=== PATIENT | male | born 1965 | race Caucasian/White ===

== ENCOUNTER 2016-10-26 21:42 | Emergency (ER) | payer OTHER ==
[2016-10-27] MEDS ORDERED: Ibuprofen TAB* 600 MG PO ONE (00:14)
--- NOTE | 2016-10-27 00:30 | ED ---
Upper Extremity Pain - HPI Summary HPI Summary: 51 male presents with complaints of right wrist pain that began falling and landing on it while playing basketball just prior to arrival. Patient states his hand was under his chest and fell palm down, with wrist bending backwards, per patient. Admits to some swelling, has been icing. Has not taken any pain medication. Denies hitting head, LOC and any other injury. Has ROM with mild pain and stiffness. Denies numbness/tingling. No PMHx. Pain is 3/10 only with movement. - History of Current Complaint Chief Complaint: EDExtremityUpper Stated Complaint: RT WRIST INJURY Time Seen by Provider: 10/26/16 22:50 Hx Obtained From: Patient Mechanism Of Injury: Fall From A Standing Position, Twisted Onset/Duration: Started Hours Ago, Traumatic, Still Present Timing: Constant Severity Initially: Mild Severity Currently: Mild Pain Location: Wrist - right Character: Aching Aggravating Factor(s): Movement, Internal/External Rotation, Abduction, Adduction Alleviating Factor(s): Rest, Ice Associated Signs & Symptoms: Positive: Swelling Related History: Dominant Hand Right - Allergies/Home Medications Allergies/Adverse Reactions: Allergies Allergy/AdvReac Type Severity Reaction Status Date / Time No Known Allergies Allergy Verified 10/26/16 21:59 PMH/Surg Hx/FS Hx/Imm Hx Endocrine/Hematology History: Denies: Hx Diabetes Cardiovascular History: Denies: Hx Hypertension Respiratory History: Denies: Hx Asthma Musculoskeletal History: Denies: Hx Rheumatoid Arthritis, Hx Osteoporosis - Surgical History Surgery Procedure, Year, and Place: none - Immunization History Immunizations Up to Date: Yes Infectious Disease History: No Infectious Disease History: Denies: Traveled Outside the [place] in Last 30 Days - Family History Known Family History: Positive: None - Social History Alcohol Use: Weekly Substance Use Type: Reports: None Smoking Status (MU): Never Smoked Tobacco Review of Systems Constitutional: Negative Cardiovascular: Negative Positive: Shortness Of Breath Positive: Arthralgia, Myalgia, Edema - right wrist Skin: Negative Neurological: Negative All Other Systems Reviewed And Are Negative: Yes Physical Exam Triage Information Reviewed: Yes Vital Signs On Initial Exam: Initial Vitals Temp Pulse Resp BP Pulse Ox 97.8 F 82 16 124/77 97 10/26/16 21:55 10/26/16 21:55 10/26/16 21:55 10/26/16 21:55 10/26/16 21:55 Vital Signs Reviewed: Yes Appearance: Positive: Well-Appearing, No Pain Distress, Well-Nourished Skin: Positive: Warm, Skin Color Reflects Adequate Perfusion, Dry, Other - no obvious deformity, crepitus or step off noted. minimal ecchymosis and edema. Negative: Cold, Numb, Cyanosis @, Erythema @ Head/Face: Positive: Normal Head/Face Inspection Eyes: Positive: Normal, Conjunctiva Clear ENT: Positive: Hearing grossly normal Neck: Positive: Supple, Nontender Respiratory/Lung Sounds: Positive: Clear to Auscultation, Breath Sounds Present. Negative: Rales, Wheezes Cardiovascular: Positive: Normal, RRR, Pulses are Symmetrical in both Upper and Lower Extremities - 2+ radial b/l. Negative: Murmur, Rub Musculoskeletal: Positive: Strength/ROM Intact - FROM of right wrist with some pain/stiffness but able, better with passive. Hand/fingers ROM normal and without pain, Pain @ - on palpation, very mild at snuff box as well as medial wrist. Negative: Limited @, Interruption @, Edema Left, Edema Right Neurological: Positive: Normal, Sensory/Motor Intact - sensation intact, Alert, Oriented to Person Place, Time, CN Intact II-III, Reflexes Intact, NV Bundle Intact Distally Psychiatric: Positive: Affect/Mood Appropriate AVPU Assessment: Alert Diagnostics - Vital Signs Vital Signs Temp Pulse Resp BP Pulse Ox 10/26/16 23:00 98.7 F 68 17 124/77 98 10/26/16 21:55 97.8 F 82 16 124/77 97 - Laboratory Lab Statement: Any lab studies that have been ordered have been reviewed, and results considered in the medical decision making process. - Radiology wrist Xray Interpretation: No Acute Changes - negative examination at this time, repeat imaging if symptoms persist Radiology Interpretation Completed By: ED Physician - Dr Nunez forearm Xray Interpretation: No Acute Changes - negative examination at this time, repeat imaging if symptoms persist Radiology Interpretation Completed By: ED Physician - Dr Nunez Course/Dx - Course Course Of Treatment: given ibuprofen for pain and inflammation. Ice. X-rays of right forearm and wrist obtained and negative at this time. Given thumb spica, continue RICE and NSAIDs. Follow up and have repeat imaging to rule out hairline in the next couple of days. Aware of worsening signs and symptoms to watch out for. - Diagnoses Differential Diagnosis/HQI/PQRI: Positive: Contusion, Fracture (Closed), Strain , Sprain Provider Diagnoses: Sprain of wrist, right Discharge - Discharge Plan Condition: Stable Disposition: HOME Patient Education Materials: Wrist Sprain (ED) Referrals: [facility] [Outside] No Primary Care Phys,NOPCP [Primary Care Provider] - Linda Asher MD [Medical Doctor] - Additional Instructions: Continue icing, resting, elevation and using brace for the next week. Continue taking ibuprofen or naproxen for pain and inflammation, with food, for the next 3-5 days. Sprains are sometimes worse than breaks and take longer to heal, refrain from physical activity until symptoms have completely resolved and take it easy. If symptoms persist or do not improve within the next week please seek medical attention. Recommend repeat imaging in the next 3 days. Follow up with PCP.
[2016-10-27 01:33] VITALS: BP 119/68
--- NOTE | 2016-10-27 07:58 | RAD ---
HISTORY: Right wrist pain COMPARISONS: None VIEWS: 3, Frontal, lateral, and oblique views of the right wrist FINDINGS: BONE DENSITY: Normal. BONES: There is no displaced fracture. 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 ALIGNMENT: There is no dislocation. SOFT TISSUES: Unremarkable. OTHER FINDINGS: None. IMPRESSION: NO ACUTE OSSEOUS INJURY. IF SYMPTOMS PERSIST, RECOMMEND REPEAT IMAGING.
--- NOTE | 2016-10-27 07:59 | RAD ---
HISTORY: Right forearm pain, trauma COMPARISONS: None VIEWS: 2, Frontal and lateral views of the right forearm FINDINGS: BONE DENSITY: Normal. BONES: There is no displaced fracture. JOINTS: There is no arthropathy. ALIGNMENT: There is no dislocation. SOFT TISSUES: Unremarkable. OTHER FINDINGS: None. IMPRESSION: NO ACUTE OSSEOUS INJURY. IF SYMPTOMS PERSIST, RECOMMEND REPEAT IMAGING.
== END 2016-10-27 01:05 | disposition home or self-care (01) ==
LOC: ED 21:42
DX: S63.501A Unspecified sprain of right wrist, initial encounter (principal); M25.531 Pain in right wrist; R06.02 Shortness of breath; W19.XXXA Unspecified fall, initial encounter; Y93.67 Activity, basketball; Y92.89 Other specified places as the place of occurrence of the external cause
CPT/HCPCS: 99281; A9270-GY

== ENCOUNTER 2019-02-19 17:26 | Emergency (ER) | payer OTHER ==
--- NOTE | 2019-02-19 17:34 | UC ---
Skin Complaint HPI - HPI Summary HPI Summary: 53 yo male presents with tick bite. He tells me that today he removed a tick from his right flank. Thinks he acquired it 2 days ago when he was with a dog in [place]. Tick with him today appears slightly engorged, but does not appear consistent with a deer tick. He has no symptoms at this time - History of Current Complaint Time Seen by Provider: 02/19/19 17:33 Stated Complaint: TICK BITE Hx Obtained From: Patient Onset/Duration: Sudden Onset Current Severity: None - Allergy/Home Medications Allergies/Adverse Reactions: Allergies Allergy/AdvReac Type Severity Reaction Status Date / Time No Known Allergies Allergy Verified 01/08/17 11:15 Home Medications: Home Medications NK [No Home Medications Reported] 02/19/19 [History Confirmed 02/19/19] PMH/Surg Hx/FS Hx/Imm Hx - Additional Past Medical History Additional PMH: None - Surgical History Surgical History: Yes Surgery Procedure, Year, and Place: RIGHT SHOULDER [place]PA[place] [facility] [place] [facility] [place] - Family History Known Family History: Positive: None - Social History Lives: With Family Alcohol Use: Weekly Substance Use Type: None Smoking Status (MU): Never Smoked Tobacco Review of Systems All Other Systems Reviewed And Are Negative: No Constitutional: Positive: Negative Skin: Positive: Other - Tick bite Respiratory: Positive: Negative Cardiovascular: Positive: Negative Neurological: Positive: Negative Psychological: Positive: Negative Physical Exam - Summary Physical Exam Summary: GENERAL: NAD. WDWN. No pain distress. SKIN: Right flank: there is a 7mm diameter of mild erythema and edema with central 1mm area of superficial skin loss. No streaking, bleeding, or drainage. NECK: Supple. Nontender. No lymphadenopathy. CHEST: No accessory muscle use. Breathing comfortably and in no distress. CV: Pulses intact. Cap refill <2seconds NEURO: Alert. PSYCH: Age appropriate behavior. Triage Information Reviewed: Yes Vital Signs: Vital Signs: Temp Pulse Resp BP Pulse Ox 98 F 71 16 127/77 100 02/19/19 17:33 02/19/19 17:33 02/19/19 17:33 02/19/19 17:33 02/19/19 17:33 Vital Signs Reviewed: Yes Course/Dx - Course Course Of Treatment: Tick appears to be slightly engorged. Pt was given doxycycline 200mg in the clinic for prophylactic lyme. Advised to monitor for signs/symptoms of lyme and be rechecked if develops - Diagnoses Provider Diagnosis: Tick bite Discharge ED - Sign-Out/Discharge Documenting (check all that apply): Patient Departure All imaging exams completed and their final reports reviewed: No Studies - Discharge Plan Condition: Stable Disposition: HOME Patient Education Materials: Lyme Disease (ED), Tick Bite (ED) Referrals: No Primary Care Phys,NOPCP [Primary Care Provider] - Additional Instructions: TICK BITE: You have been bitten by a tick. Once the tick is removed, these "bites" usually cause no problems. Tick fever, tick paralysis, [place] Spotted fever, and Lyme disease are uncommon -- but you should mention this tick bite to your doctor if you develop unusual symptoms in the next several weeks. If you develop any of the following, please see your physician promptly: (1) Fever, chills, or generalized malaise associated with a headache. (2) A red round area at the site of the bite (or elsewhere) (3) Joint pain, joint swelling or generalized weakness. (4) Redness, swelling, or drainage at the site of the bite. Ticks do not have a typical "head" attached to their body. There are mouth parts sticking out which they use to feed. If there are mouth parts left behind in the wound there is NO increased risk of Lyme infection or disease transmission. If mouth parts remain after tick removal, the best thing to do is apply warm soaks to the area 3-4 times per day to encourage the skin to expel the foreign material. WHEN A TICK IS NOT ENGORGED AND HAS BEEN ON LESS THAN 24 HOURS - THE RISK FOR LYME IS NEGLIGIBLE. YOU CAN REMOVE THE TICK AND OBSERVE THE AREA ON YOUR OWN. - Billing Disposition and Condition Condition: STABLE Disposition: Home
[2019-02-19 17:35] VITALS: BP 127/77
[2019-02-19] MEDS ORDERED: DOXYcycline CAP(*) 100 MG PO ONE (17:44)
== END 2019-02-19 18:08 | disposition home or self-care (01) ==
LOC: UCEAST 17:26
DX: S30.861A Insect bite (nonvenomous) of abdominal wall, initial encounter (principal); W57.XXXA Bitten or stung by nonvenomous insect and other nonvenomous arthropods, initial encounter; Y92.9 Unspecified place or not applicable
CPT/HCPCS: 99211; A9270-GY; G0463